=== PATIENT | female | born 1995 | race African-American/Black ===

== ENCOUNTER 2018-04-22 16:26 | Emergency (ER) | payer OTHER ==
[~2018-04-22] VITALS: Ht 160 cm; Wt 61.0 kg
[2018-04-22 16:36] VITALS: BP 132/56
== END 2018-04-22 19:30 | disposition left against medical advice (07) ==
LOC: ER 16:26
DX: K08.89 Other specified disorders of teeth and supporting structures (principal); Z53.21 Procedure and treatment not carried out due to patient leaving prior to being seen by health care provider